=== PATIENT | female | born 1995 | race Caucasian/White ===

== ENCOUNTER 2017-01-26 13:20 | Emergency (ER) | payer BC ==
[2017-01-26 13:32] VITALS: O2SAT 100
[2017-01-26] MEDS ORDERED: MORPHINE SULFATE 10 MG/ML IV ONE (13:34)
[2017-01-26] MEDS ORDERED: BACIGUENT PACKET TP ONE (13:34)
[2017-01-26] MEDS ORDERED: BENADRYL 50 MG/ML IV ONE (13:34)
[2017-01-26] MEDS ORDERED: Adacel Vial IM ONE ×2 (13:41→13:44)
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
[2017-01-26] MEDS ORDERED: BENADRYL 50 MG/ML ONE (13:43)
[2017-01-26] MEDS ORDERED: BACIGUENT PACKET ONE (13:43)
[2017-01-26] MEDS ORDERED: MORPHINE SULFATE 10 MG/ML ONE (13:44)
[2017-01-26 14:22] VITALS: BP 122/70; PULSE 76
== END 2017-01-26 14:22 | disposition home or self-care (01) ==
LOC: ED 13:20
DX: T23.171A Burn of first degree of right wrist, initial encounter (principal); T23.101A Burn of first degree of right hand, unspecified site, initial encounter; X16.XXXA Contact with hot heating appliances, radiators and pipes, initial encounter
CPT/HCPCS: 36000; 90471; 90715; 96374; 96375; 99284; J1200; J2270; A9270-GY